=== PATIENT | female | born 1950 | race Caucasian/White ===

== ENCOUNTER 2017-10-29 00:12 | Day surgery (SDC) | payer MEDICARE, OTHER ==
[~2017-10-29] VITALS: Ht 170.2 cm; Wt 105.2 kg
[~2017-10-29 00:12] MED LIST: ALBU8.5H IH; ASPI-1471 PO; DULO60CA7; EMPA25TA PO; ESOM40CA42 PO; FLUT16SP19 NS; GLIM4TAB49 PO; LEVO75TA73 PO; METO25TA91 PO; NAPR220C12 PO; RIZA10TA PO; SIMV-54 PO; SITA1TAB17 PO; TERB250T74 PO; TRAZ50TA34 PO
[2017-10-29 06:04] VITALS: BP 127/77
[2017-10-29] MEDS ORDERED: LIDOCAINE/SOD BICARB 8.4% SYR ID ONE (07:00)
[2017-10-29] MEDS ORDERED: MIDAZOLAM 2 MG/2 ML VIAL IVP PRN (07:00)
[2017-10-29] MEDS ORDERED: NORMOSOL R SOLN(*) 1000 ML BAG 1,000 ML IV PRN (07:00)
[2017-10-29] MEDS ORDERED: CELECOXIB 200 MG CAP PO ONE (07:00)
[2017-10-29] MEDS ORDERED: ceFAZolin(*) 2GM/D5W 50ML 50 ML IVPB ONE (07:00)
[2017-10-29] MEDS ORDERED: ROPIVACAINE 0.2% 20 ML VIAL ONE (07:00)
[2017-10-29] MEDS ORDERED: fentaNYL CITR 100 MCG/2 ML AMP ONE (07:21)
[2017-10-29] MEDS ORDERED: PROPOFOL EMUL(*) 10MG/ML 20 ML 20 ML ONE (07:25)
[2017-10-29] MEDS ORDERED: LIDOCAINE 2% IV 100 MG/5ML SYR ONE (07:25)
[2017-10-29] MEDS ORDERED: ONDANSETRON 4 MG/2 ML VIAL ONE (07:34)
[2017-10-29] MEDS ORDERED: KETOROLAC 30 MG/ML VIAL ONE (07:34)
[2017-10-29] MEDS ORDERED: LOR5/325 PO (09:03)
[2017-10-29 09:21] VITALS: BP 111/67
--- NOTE | 2017-10-29 09:25 | OPERATIVE REPORT 1 ---
EVENT DATE: October 29, 2017 SURGEON: Camden Haro M.D. ANESTHESIOLOGIST: Isiah Carranza M.D. ANESTHESIA: General LMA. PRINTING ROLLER POLISHER: SMILEY Villa, LEVEL VIAL SEALER PREOPERATIVE DIAGNOSIS Left knee cartilage damage as well as meniscus tear and synovitis. POSTOPERATIVE DIAGNOSIS Left knee cartilage damage as well as meniscus tear and synovitis. PROCEDURE PERFORMED Left knee arthroscopic partial medial meniscectomy, partial lateral meniscectomy , chondroplasty and synovectomy. FINDINGS The patient has significant amount of torn cartilage and cartilage damage, especially on the medial femoral condyle and a bone spur that was removed. ESTIMATED BLOOD LOSS Minimal. DRAINS None. SPECIMENS None. COMPLICATIONS None. TOURNIQUET TIME 21 minutes; it was up just until we got a venous tourniquet and then we had to let it down. IMPLANTS USED Not applicable. INDICATIONS/HISTORY This patient is a 66-year-old female that presented to my clinic for evaluation of left knee pain and irritation going on for some time. She continued to have pain and irritation despite conservative management and so, therefore, we got her set up for an MRI and MRI indicated that she did have large medial meniscus tear as well as some cartilage damage throughout. We talked to her about a total knee arthroplasty versus a knee arthroscopy. She wanted to try the knee arthroscopy and try to hold off on the total knee as long as possible so, therefore, we got her set up to do a partial meniscectomy, chondroplasty and synovectomy. She was told there was no guarantee this would make her better and she may still end up with a total knee sooner rather than later and she stated she understood this. DESCRIPTION OF PROCEDURE The patient was brought into the operating room. She and the procedure were both verified. She was placed supine on the operating table and induced intubated by anesthesia. The left lower extremity was then prepped and draped in the usual fashion. A time-out was observed, verifying the correct patient and procedure. The standard incisions were made over the anterior aspect of the knee and through the skin and subcutaneous tissue. There was some scar tissue from prior knee scope in this area. We were able to resect it with a small suction shaver. I then did a diagnostic arthroscopy, where there noted to be a significant amount of cartilage damage on the medial femoral condyle as well as some tearing and irritation associated with the medial meniscus and also on the proximal tibia. I then performed a chondroplasty and a synovectomy over the medial side and also in the patellofemoral joint and then went down into the medial compartment. Once in the medial compartment, using a combination of meniscal biter and suction shave, I was able to trim the meniscus back to a nice stable base. I then turned attention to the central pivot, where I removed a large osteophyte in this area using suction shaver on bur mode. Once I was able to do this, I then was able to clean up the anterior aspect of the knee and then go in the lateral compartment. There was some fraying and irritation associated with the lateral meniscus and I was able to clean this up without much difficulty and then performed a chondroplasty on the distal femoral condyle as well as the proximal tibia on this side also. I then switched the portals and was able to remove the synovitis over the lateral side as well as the medial side again. I also cleaned up the patellofemoral joint a little bit better on this side and any loose fragments or issues associated with it. I then did another diagnostic arthroscopy, going throughout the entirely of the joint and then removed all instrumentation, drained the fluid out and closed the portal sites with 4-0 Monocryl, anesthetized with 1% ropivacaine and dressed with steri-strips, gauze, 4x4s and a soft dressing. The patient was awakened and extubated and transferred to PACU in stable condition. It should be noted the tourniquet was let down after about 21 minutes and we started to have a venous tourniquet. LEANDRO
[2017-10-29 09:50] VITALS: BP 110/64
[2017-10-29 10:30] VITALS: BP 110/64
[2017-10-29 10:40] VITALS: BP 114/70
[2017-10-29 10:47] VITALS: BP 106/77
== END 2017-10-29 09:21 | disposition home or self-care (01) ==
LOC: OR 00:12
PROVIDERS: ATTEND Orthopaedic Surgery
DX: S83.242A Other tear of medial meniscus, current injury, left knee, initial encounter (principal); E11.9 Type 2 diabetes mellitus without complications; I10 Essential (primary) hypertension; J45.909 Unspecified asthma, uncomplicated; I51.9 Heart disease, unspecified
CPT/HCPCS: 29880; 36416; 81001; 82948; 94667; A9270; J1885; J2001; J2405; J2704; J2795; J3010; J0690